=== PATIENT | male | born 1955 | race Hispanic/Latino ===

== ENCOUNTER 2022-03-04 11:38 | Emergency (ER) | payer OTHER ==
[~2022-03-04] VITALS: Ht 157.5 cm; Wt 81.6 kg
[2022-03-04] MEDS ORDERED: ACETAMINOPHEN 500 MG TABLET PO ONE (13:00)
[2022-03-04] MEDS ORDERED: CYCL10TA16 PO (13:18)
[2022-03-04 13:46] VITALS: BP 146/70
== END 2022-03-04 13:48 | disposition home or self-care (01) ==
LOC: EDH 11:38
DX: S46.912A Strain of unspecified muscle, fascia and tendon at shoulder and upper arm level, left arm, initial encounter (principal); E11.9 Type 2 diabetes mellitus without complications; E78.00 Pure hypercholesterolemia, unspecified; I10 Essential (primary) hypertension; Z79.899 Other long term (current) drug therapy; W01.0XXA Fall on same level from slipping, tripping and stumbling without subsequent striking against object, initial encounter; Y93.89 Activity, other specified; Y92.89 Other specified places as the place of occurrence of the external cause; Y99.8 Other external cause status
CPT/HCPCS: 71101; 73030; 73060

== ENCOUNTER 2024-09-16 09:31 | Inpatient (IN) | payer OTHER ==
[~2024-09-16] VITALS: Ht 157.5 cm; Wt 81.6 kg
[~2024-09-16 09:31] MED LIST: CYCL10TA16 PO
[2024-09-16 10:00] LABS: IMMATURE GRANULOCYTE ABSOLUTE 0.07 K/uL (0-1); NUCLEATED RED BLOOD CELLS 0.0 % (0.0-0.19); PLATELET COUNT (AUTO) 259 K/uL (130-400); RED BLOOD CELL COUNT(AUTO) 5.61 MIL/uL (4.50-6.20); RED CELL DISTRIBUTION WIDTH 13.4 % (11.0-15.5); WHITE BLOOD COUNT (AUTO) 12.6 K/uL (4.8-10.8)
--- NOTE | 2024-09-16 10:10 | ERN ---
General Chief Complaint: Blood in Urine: Stated Complaint: BLOOD IN URINE Time Seen by MD: 09:34 Source: patient History of Present Illness Initial Comments Patient is a 69-year-old male coming in complaining of blood in the urine. Patient states that this has been ongoing for a couple of days. He also states that he feels did not need to go and sometimes did not completely void. Allergies: Coded Allergies: No Known Allergies (Unverified Allergy, Unknown, 03/04/22) Home Meds Active Scripts Cyclobenzaprine HCl (Flexeril) 10 Mg Tab, 10 MG PO TID PRN for PAIN LEVEL 6 TO 10 for 3 Days, #9 TAB Prov:ALEX MORALES [facility] 03/04/22 Past Medical History Past Medical History: Diabetes-Type II, Hypertension Past Surgical History: Other Surgical History Other: LEFT KNEE SX ROS Dictation CONSTITUTIONAL: No chills, no fever, no weakness, no diaphoresis, no malaise. HEAD/FACE: No signs of trauma. EENT: No eye pain, no blurred vision, no tearing, no double vision, no ear pain, no ear discharge, no nose pain, no nasal congestion, no throat pain, no throat swelling, no mouth pain. RESPIRATORY: No cough, no orthopnea, no SOB, no stridor, no wheezing. CARDIOVASCULAR: No chest pain, no edema, no palpitations, no syncope. GASTROINTESTINAL/ABDOMINAL: No abdominal pain, no constipation, no diarrhea, no nausea, no vomiting. GENITOURINARY: No abnormal discharge, dysuria, frequent urination, no hematuria. No complaints of pain in the genitals. MUSCULOSKELETAL: No back pain, no gout, no joint pain, no joint swelling, no muscle pain, no muscle stiffness, no neck pain. INTEGUMENTARY: No change in color, no change in hair/nails, no dryness, no lesion, no lumps, no rash. NEUROLOGICAL/PSYCH: No anxiety, not depressed, no emotional problem, no headache, no numbness, no pre-existing deficit, no history of seizures, no tremors, no weakness. HEMATOLOGIC/LYMPHATIC: Not anemic, no history of blood clots, no apparent bleeding, no bruising, glands not swollen. All Systems Negative, Except as Noted. Physical Exam Physical Exam Dictation VITAL SIGNS: Reviewed. GENERAL APPEARANCE: Alert, oriented x3, no acute distress, obese. HEAD AND FACE: Non-traumatic. EYES: PERRL, pink conjunctivas, eyelid no trauma, anterior chamber clear. EARS: Pinnas intact and no signs of trauma or erythema. Ear canals clear and no discharge. TMs no erythema. NOSE: No discharge, no bleeding. OROPHARYNX: Mouth normal, teeth no caries, tongue pink. Pharynx clear, no erythema. Tonsils no exudates, no abscesses noted. Mucous membrane moist. NECK: Supple, non-tender, no thyromegaly, no masses, no JVD, no bruits. BREAST: Deferred. CHEST: No tenderness, no crepitus, no paradoxical movement, no retractions. LUNGS: Clear, well-ventilated, symmetric, no rales, no wheezing, no rhonchi, no stridor, good breath sounds bilaterally. HEART: Regular rate, regular rhythm, no murmur, no gallops. VASCULAR: No peripheral edema. ABDOMEN: Soft, positive bowel sounds, nondistended, no guarding, nontender, no rebound, no masses no hepatomegaly, no splenomegaly, no Bautista's sign, no hernias. RECTAL: Deferred. GENITAL: Deferred. NEUROLOGICAL: Normal speech, gross motor function intact, gross sensory function intact. MUSCULOSKELETAL: Neck nontender, full range of motion, back nontender, full range of motion. EXTREMITIES: Nontender, full range of motion. SKIN: Color pink, dry, no turgor, no rash, no lacerations, no abrasions, no contusions. LYMPHATICS: Deferred. Results Laboratory and Microbiology Lab and Micro Result Laboratory Tests Test 09/16/24 09:54 09/16/24 09:55 White Blood Count 12.6 K/uL (4.8-10.8) H Red Blood Count 5.61 MIL/uL (4.50-6.20) Hemoglobin 18.7 g/dL (14.0-18.0) H Hematocrit 55.4 % (42-54) H Mean Corpuscular Volume 98.8 fL (79-99) Mean Corpuscular Hemoglobin 33.3 pg (27.0-33.0) H Mean Corpuscular Hemoglobin Concent 33.8 g/dL (32.0-36.0) Red Cell Distribution Width 13.4 % (11.0-15.5) Platelet Count 259 K/uL (130-400) Mean Platelet Volume 10.9 fL (7.5-10.5) H Immature Granulocyte % (Auto) 0.6 % (0-1) Neutrophils (%) (Auto) 89.2 % (40.0-77.0) H Lymphocytes (%) (Auto) 8.1 % (21.0-51.0) L Monocytes (%) (Auto) 1.8 % (3.0-13.0) L Eosinophils (%) (Auto) 0.1 % (0.0-8.0) Basophils (%) (Auto) 0.2 % (0.0-5.0) Neutrophils # (Auto) 11.2 K/uL (1.8-7.7) H Lymphocytes # (Auto) 1.0 K/uL (1.0-4.8) Monocytes # (Auto) 0.2 K/uL (0.1-1.0) Eosinophils # (Auto) 0.01 K/uL (0.00-0.70) Basophils # (Auto) 0.03 K/uL (0.00-0.20) Absolute Immature Granulocyte (auto 0.07 K/uL (0-1) Nucleated Red Blood Cells 0.0 % (0.0-0.19) White Cell Morphology Comment See comments Sodium Level 133 mmol/L (136-145) L Potassium Level 4.9 mmol/L (3.5-5.1) Chloride Level 97 mmol/L (101-111) L Carbon Dioxide Level 29 mmol/L (21-32) Blood Urea Nitrogen 15 mg/dL (7-18) Creatinine 1.1 mg/dL (0.5-1.3) Glomerular Filtration Rate Calc 72 mL/min (>90) Random Glucose 415 mg/dL (70-105) *H Total Calcium 9.3 mg/dL (8.5-10.1) Urine Color RED (YELLOW) Urine Appearance CLOUDY (CLEAR) H Urine pH 5.5 (5.0-8.0) Urine Specific [place] 1.029 (1.001-1.031) Urine Protein 100 mg/dL (NEGATIVE) H Urine Glucose (UA) >=1000 mg/dL (NEGATIVE) H Urine Ketones NEGATIVE mg/dL (NEGATIVE) Urine Occult Blood LARGE (NEGATIVE) H Urine Nitrate NEGATIVE (NEGATIVE) Urine Bilirubin NEGATIVE mg/dL (NEGATIVE) Urine Urobilinogen 0.2 mg/dL (0.2-1.0) Urine Leukocyte Esterase 25 Irwin/uL (NEGATIVE) H Urine RBC TNTC /HPF (0-1) H Urine WBC 11-25 /HPF (0-1) H Urine Bacteria FEW /HPF (None Seen) Labs Reviewed?: Yes EKG/XRAY/US/CT/MRI CT Scan Comment [facility] [address] [place] [address] IMAGING REPORT Signed PATIENT: AMI NINA MR#: [id number] : 1955 SEX: M AGE: 69 LOCATION: [facility] ORDER 9 STATUS: REG REPORT#: [id number] SERVICE 8 REASON: hematuria ORDERING PHYSICIAN: YUDITH CALLEJAS MD PROCEDURE: ABD PEL WO - CT ABDOMEN/PELVIS W/O CONTRAST EXAM: CT abdomen and pelvis without contrast HISTORY: Hematuria TECHNIQUE: Multiple axial CT slices through the abdomen and pelvis without contrast. Coronal and sagittal reconstructions were performed. CT scans are performed using one of these three dose reduction techniques: automated exposure control, adjustment of the mA and/or kV according to patient size, or use of iterative reconstruction techniques. COMPARISON: None FINDINGS: Atelectasis seen in the lung bases. Coronary artery calcifications. No hepatic lesions. Gallbladder is decompressed. Spleen is normal. No pancreatic lesions. Adrenal glands are normal. No renal lesions. No hydronephrosis. Bladder is decompressed with mildly thickened wall. Bladder wall is slightly indistinct. No bowel dilatation. Diverticulosis. Appendix is normal. Vascular calcifications. No abdominal/pelvic lymphadenopathy. Degenerative changes. Air seen along the left retroperitoneum and in the spinal canal. Mild anterolisthesis of L4 and L5 vertebrae. IMPRESSION: Thickened indistinct appearance of the bladder wall may be secondary to infection or under distention. No urinary calculi or hydronephrosis. Air seen in the spinal canal and left retroperitoneum may be iatrogenic. Please clinic correlate with history and neurologic symptoms /[place] DICTATED BY: MELVA ANDERSON MD DATE: 09/16/24 1308 ELECTRONICALLY SIGNED BY: MELVA ANDERSON MD DATE: 09/16/24 1308 [facility] MDM: Differential diagnosis:, diabetes mellitus hyperglycemia uncontrolled, UTI, leukocytosis, dehydration Rationale: Tests considered and ordered secondary to shared decision making include: labs, ECG and radiology Previous outside records reviewed: Old ER visits. Risk of complication and/or morbidity or mortality of patient management: None Medications-Per medication reconciliation Need for hospitalization: Patient does meet criteria for hospitalization. Need for emergency major/minor surgery: No There are no social concerns with this patient. Prescription drug management Prescriptions will include symptomatic care Patient's prior external medical records from other ER visits were reviewed by me as indicated. Prior testing and results from previous visits were reviewed. Prior tests were taken into account with medical decision making and resource utilization, independent historian/historians were used to obtain complete medical history. I independently interpreted the test that were performed, results were reviewed by me and considered findings on radiology if ordered. Medical management and examination interpretation discussions were had by me with other qualified healthcare professionals as indicated for the patient's care. Patient will be admitted under the care of hospitalist group for ongoing management. ED Course Orders Procedure Category Date Status Time Cbc With Differential LAB 09/16/24 Complete 09:39 Basic Metabolic Panel LAB 09/16/24 Complete 09:39 Urinalysis LAB 09/16/24 Complete W/Microscopic 09:39 Ct Abdomen/Pelvis W/O CT 09/16/24 Resulted Contrast 09:39 Culture Urine BORIS 09/16/24 In Process 10:51 Ceftriaxone 1g Vial PHA 09/16/24 Complete (Rocephine 1g Inj) 11:30 0.9%Nacl 1000ml (Ns PHA 09/16/24 Complete 1000ml) 13:00 Insulin Regular, PHA 09/16/24 Complete Human 3ml (Humulin R 13:00 Current Medications Medications (Trade) Dose Ordered Sig/Juliane Route PRN Reason Start Time Stop Time Status Last Admin Dose Admin Ceftriaxone Sodium (ROCEphine 1G INJ) 1 gm ONCE ONCE IVPB 09/16/24 11:30 09/16/24 11:31 DC 09/16/24 11:30 Insulin Human Regular (humuLIN R 100 UNIT/ML 3ML) 5 unit ONCE ONCE IV 09/16/24 13:00 09/16/24 13:01 DC 09/16/24 13:01 Sodium Chloride 1,000 ml @ 0 mls/hr ONCE ONCE IV 09/16/24 13:00 09/16/24 13:01 DC 09/16/24 12:59 Vital Signs Date Time Temp Pulse Resp B/P (MAP) Pulse Ox O2 Delivery O2 Flow Rate FiO2 09/16/24 12:15 98.1 102 18 132/81 95 Room Air* 0 09/16/24 09:57 98.1 100 18 137/72 99 Room Air* 0 09/16/24 09:36 98.1 108 18 150/91 99 Room Air* 0 09/16/24 09:33 98.1 108 18 150/91 99 DX & DISP Disposition: Inpatient Decision to Admit Time: 13:13 Departure Impression: Primary Impression: UTI (urinary tract infection) Additional Impressions: Diabetes mellitus due to underlying condition, uncontrolled, with hyperglycemia, Dehydration Condition: Stable Referrals: YUDITH MOORE (PCP) YUDITH CALLEJAS MD Sep 16, 2024 10:10
[2024-09-16 10:17] LABS: CREATININE 1.1 mg/dL (0.5-1.3); GLOMERULAR FILTR. RATE CALC 72.0 mL/min (>90); SODIUM SERUM 133.0 mmol/L (136-145); UREA NITROGEN, BLOOD 15.0 mg/dL (7-18)
[2024-09-16 10:44] LABS: GLUCOSE,RANDOM 415.0 mg/dL (70-105)
[2024-09-16 10:45] LABS: GLUCOSE, URINE (UA) >=1000 mg/dL (NEGATIVE); LEUKOCYTE ESTERASE ,URINE 25 Leu/uL (NEGATIVE); NITRATE,URINE NEGATIVE (NEGATIVE); OCCULT BLOOD,URINE LARGE (NEGATIVE)
[2024-09-16 10:49] LABS: APPEARANCE,URINE CLOUDY (CLEAR)
--- NOTE | 2024-09-16 12:09 | HMCIMG ---
EXAM: CT abdomen and pelvis without contrast HISTORY: Hematuria TECHNIQUE: Multiple axial CT slices through the abdomen and pelvis without contrast. Coronal and sagittal reconstructions were performed. CT scans are performed using one of these three dose reduction techniques: automated exposure control, adjustment of the mA and/or kV according to patient size, or use of iterative reconstruction techniques. COMPARISON: None FINDINGS: Atelectasis seen in the lung bases. Coronary artery calcifications. No hepatic lesions. Gallbladder is decompressed. Spleen is normal. No pancreatic lesions. Adrenal glands are normal. No renal lesions. No hydronephrosis. Bladder is decompressed with mildly thickened wall. Bladder wall is slightly indistinct. No bowel dilatation. Diverticulosis. Appendix is normal. Vascular calcifications. No abdominal/pelvic lymphadenopathy. Degenerative changes. Air seen along the left retroperitoneum and in the spinal canal. Mild anterolisthesis of L4 and L5 vertebrae. IMPRESSION: Thickened indistinct appearance of the bladder wall may be secondary to infection or under distention. No urinary calculi or hydronephrosis. Air seen in the spinal canal and left retroperitoneum may be iatrogenic. Please clinic correlate with history and neurologic symptoms /[place]
[2024-09-16] MEDS: 0.9%NACL 1000ML 1,000 ML IV ONE (12:59)
[2024-09-16] MEDS ORDERED: DULO30CA52 PO (13:38)
[2024-09-16] MEDS ORDERED: LOSA100T59 PO (13:38)
[2024-09-16] MEDS ORDERED: PIOG15TA66 PO (13:38)
[2024-09-16] MEDS ORDERED: ROSU40TA88 PO (13:38)
[2024-09-16] MEDS ORDERED: GLIM2TAB30 PO (13:38)
[2024-09-16] MEDS ORDERED: GABA-529 PO (13:38)
[2024-09-16] MEDS ORDERED: METF-446 PO (13:38)
[2024-09-16] MEDS ORDERED: PoTASSium chl 10% ELIXIR 20MEQ 20 MEQ/15 ML UDCUP PO PRN (14:00)
[2024-09-16] MEDS ORDERED: DEXTROSE 50%-WATER 50 ML DISP.SYRIN IV PRN (14:00)
[2024-09-16] MEDS ORDERED: GLUCAGON 1MG KIT 1 MG ML IM PRN (14:00)
[2024-09-16] MEDS: 0.9%NACL 1000ML 1,000 ML IV SCH (14:00)
[2024-09-16] MEDS ORDERED: LACTULOSE 20 GM/30 ML UDCUP PO PRN (14:00)
[2024-09-16] MEDS ORDERED: guaiFENesin-DM 200/20MG 10ML PO PRN (14:00)
[2024-09-16] MEDS ORDERED: MAGNESIUM 2GM PREMIX 50ML 50 ML IV PRN (14:00)
[2024-09-16] MEDS ORDERED: PoTASSium chloRIDE 20MEQ ER 20 MEQ ERTAB PO PRN (14:00)
[2024-09-16 14:03] LABS: % IRON SATURATION 38.1 % (30-44); IRON, SERUM 90.0 mcg/dL (65-175)
--- NOTE | 2024-09-16 14:18 | HP ---
[facility] HISTORY AND PHYSICAL Date of Service: Sep 16, 2024 Time of Service: 13:51 HISTORY OF PRESENT ILLNESS: Mr. Nina is a 69 year old Uzbek speaking gentleman with past medical history of hypertension, diabetes mellitus type 2, hyperlipidemia came to ED wi th complaints of burning with micturition since 3 days and noticed color change in his urine. He says he had low grade fevers at home, no chills or night sweats but did not take Tylenol. He denies abdominal pain or nausea or vomiting or flank pain. He denies any urinary incontinence. Patient sees Dr. Urena for his lower back pain and b/l lower extremity weakness and gets an injection every 2 months but he doesn't remember the name. While in the ED his vitals were BP 123/84, HI 105, RR 20, Temp 98.2, SpO2 99% on RA. Remarkable labs were WBC 12.6, neutrophils 89.2, Hgb 18.7, Na 133, Cl 97, Glucose 415, urinalysis - glucose >1000, protein >100, positive for occult blood, WBC and RBC present with few bacteria. He was given IV NS, ceftriaxone and insulin in ED. Patient is admitted for further evaluation and treatment under hospitalist care. REVIEW OF SYSTEMS CONSTITUTIONAL: low grade fever. No unintentional weight loss reported. NEUROLOGICAL: Denies headache, motor weakness, gait abnormalities, or tremors. CARDIOVASCULAR: Denies any exertional angina, dyspnea on exertion, orthopnea, paroxysmal nocturnal dyspnea, palpitations. PULMONARY: Denies any shortness of breath, cough, phlegm/sputum, hemoptysis, pleuritic chest pain. GASTROINTESTINAL: Denies nausea, vomiting, pyrosis, early satiety, abdominal pain, diarrhea, constipation, or changes in stool consistency or caliber. GENITOURINARY: Burning micturition, straining to void, hematuria but no incontinence. ENDOCRINOLOGIC: Denies polyuria, polydipsia, polyphagia or heat/cold intolerances. PSYCHIATRIC: Denies any suicidal or homicidal ideation. Denies hallucinations. PAST MEDICAL HISTORY: Hypertenision, Hyperlipidemia, Diabetes Mellitus PAST SURGICAL HISTORY: Left knee tibia screw 2009, Cervical disc procedure by Dr. Urena 2018 PAST SOCIAL HISTORY: Occasional drinker, no smoking FAMILY HISTORY: no pertinent history Coded Allergies: No Known Allergies (Unverified Allergy, Unknown, 03/04/22) PHYSICAL EXAM GENERAL APPEARANCE: The patient is awake, alert, and oriented, in no acute cardiopulmonary distress. NEUROLOGICAL: Motor is 5/5 in bilateral upper and lower extremities proximal to distal. No sensory deficits. CHEST: Normal chest expansion. No Telemetry. LUNGS: Absence of any rales, rhonchi or any wheezing. CARDIOVASCULAR: Regular. S1 and S2 normal. No appreciable rubs, murmurs or gallops. ABDOMEN: Soft, nontender, and nondistended. There is no rebound, voluntary guarding, or rigidity. : Deferred. No Valles. EXTREMITIES: Non-edematous and not cyanotic. No clubbing. Good capillary refill. SKIN: No skin breakdown. Vital Sign (Last 24 Hours) 09/16/24 13:25 Temp 98.1 Pulse 105 Resp 20 B/P (MAP) 123/84 Pulse Ox 99 O2 Delivery Room Air* O2 Flow Rate 0 FiO2 21 LABS: Laboratory: Test 09/16/24 09:55 09/16/24 09:54 Range/Units Urine Color RED YELLOW Urine Appearance CLOUDY H CLEAR Urine pH 5.5 5.0-8.0 Urine Specific [place] 1.029 1.001-1.031 Urine Protein 100 H NEGATIVE mg/dL Urine Glucose (UA) >=1000 H NEGATIVE mg/dL Urine Ketones NEGATIVE NEGATIVE mg/dL Urine Occult Blood LARGE H NEGATIVE Urine Nitrate NEGATIVE NEGATIVE Urine Bilirubin NEGATIVE NEGATIVE mg/dL Urine Urobilinogen 0.2 0.2-1.0 mg/dL Urine Leukocyte Esterase 25 H NEGATIVE [place]/uL Urine RBC TNTC H 0-1 /HPF Urine WBC 11-25 H 0-1 /HPF Urine Bacteria FEW None Seen /HPF White Blood Count 12.6 H 4.8-10.8 K/uL Red Blood Count 5.61 4.50-6.20 MIL/uL Hemoglobin 18.7 H 14.0-18.0 g/dL Hematocrit 55.4 H 42-54 % Mean Corpuscular Volume 98.8 79-99 fL Mean Corpuscular Hemoglobin 33.3 H 27.0-33.0 pg Mean Corpuscular Hemoglobin Concent 33.8 32.0-36.0 g/dL Red Cell Distribution Width 13.4 11.0-15.5 % Platelet Count 259 130-400 K/uL Mean Platelet Volume 10.9 H 7.5-10.5 fL Immature Granulocyte % (Auto) 0.6 0-1 % Neutrophils (%) (Auto) 89.2 H 40.0-77.0 % Lymphocytes (%) (Auto) 8.1 L 21.0-51.0 % Monocytes (%) (Auto) 1.8 L 3.0-13.0 % Eosinophils (%) (Auto) 0.1 0.0-8.0 % Basophils (%) (Auto) 0.2 0.0-5.0 % Neutrophils # (Auto) 11.2 H 1.8-7.7 K/uL Lymphocytes # (Auto) 1.0 1.0-4.8 K/uL Monocytes # (Auto) 0.2 0.1-1.0 K/uL Eosinophils # (Auto) 0.01 0.00-0.70 K/uL Basophils # (Auto) 0.03 0.00-0.20 K/uL Absolute Immature Granulocyte (auto 0.07 0-1 K/uL Nucleated Red Blood Cells 0.0 0.0-0.19 % White Cell Morphology Comment See comments Sodium Level 133 L 136-145 mmol/L Potassium Level 4.9 3.5-5.1 mmol/L Chloride Level 97 L 101-111 mmol/L Carbon Dioxide Level 29 21-32 mmol/L Blood Urea Nitrogen 15 7-18 mg/dL Creatinine 1.1 0.5-1.3 mg/dL Glomerular Filtration Rate Calc 72 >90 mL/min Random Glucose 415 *H 70-105 mg/dL Total Calcium 9.3 8.5-10.1 mg/dL Current Medications Medications (Trade) Dose Ordered Sig/Juliane Route PRN Reason Start Time Stop Time Status Last Admin Dose Admin Ceftriaxone Sodium 2 gm/ Sodium Chloride 100 ml @ 200 mls/hr Q24H IV 09/16/24 14:00 09/26/24 13:59 UNV Dextrose (D50w) 50 ml AD PRN IV HYPOGLYCEMIA PROTOCOL 09/16/24 14:00 10/16/24 13:59 UNV Enoxaparin Sodium (Lovenox) 40 mg DAILY SQ 09/17/24 09:00 10/17/24 08:59 UNV Famotidine (Pepcid 20mg Tab) 20 mg BID PO 09/16/24 21:00 10/16/24 20:59 UNV Glucagon (Glucagon 1mg Kit) 1 mg AD PRN IM HYPOGLYCEMIA PROTOCOL 09/16/24 14:00 10/16/24 13:59 UNV Guaifenesin/ Dextromethorphan (RobiTUSSin DM 200/20MG 10ML) 10 ml Q4H PRN PO COUGH 09/16/24 14:00 10/16/24 13:59 UNV Insulin Human Regular (humuLIN R 100 UNIT/ML 3ML) INSULIN SLIDING SCAL... ACHS SQ 09/16/24 16:30 10/16/24 16:29 UNV Lactulose (Constulose 20gm/ 30ml Udcup) 20 gm BID PRN PO CONSTIPATION 09/16/24 14:00 10/16/24 13:59 UNV Magnesium Sulfate 50 ml @ 0 mls/hr PROTOCOL PRN IV LOW MG 09/16/24 14:00 10/16/24 13:59 UNV Ondansetron HCl (zoFRAN 4MG INJ) 4 mg Q6H PRN IV NAUSEA/VOMITING 09/16/24 14:00 10/16/24 13:59 UNV Potassium Chloride 100 ml @ 100 mls/hr AD PRN IV POTASSIUM PROTOCOL 09/16/24 14:00 10/16/24 13:59 UNV Potassium Chloride (K-Dur/Klor-Con 20meq) 20 meq AD PRN PO POTASSIUM PROTOCOL 09/16/24 14:00 10/16/24 13:59 UNV Potassium Chloride (KCl 10% Elixir 20meq/15ml) 20 meq AD PRN PO POTASSIUM PROTOCOL 09/16/24 14:00 10/16/24 13:59 UNV Sodium Chloride 1,000 ml @ 100 mls/hr Q10H IV 09/16/24 14:00 10/16/24 13:59 UNV DIAGNOSTICS / RADIOLOGY: PATIENT: AMI NINA MR#: [id number] : 1955 SEX: M AGE: 69 LOCATION: [facility] ORDER 9 STATUS: REG ER REPORT#: [id number] SERVICE 0939 REASON: hematuria ORDERING PHYSICIAN: YUDITH CALLEJAS MD PROCEDURE: ABD PEL WO - CT ABDOMEN/PELVIS W/O CONTRAST EXAM: CT abdomen and pelvis without contrast HISTORY: Hematuria TECHNIQUE: Multiple axial CT slices through the abdomen and pelvis without contrast. Coronal and sagittal reconstructions were performed. CT scans are performed using one of these three dose reduction techniques: automated exposure control, adjustment of the mA and/or kV according to patient size, or use of iterative reconstruction techniques. COMPARISON: None FINDINGS: Atelectasis seen in the lung bases. Coronary artery calcifications. No hepatic lesions. Gallbladder is decompressed. Spleen is normal. No pancreatic lesions. Adrenal glands are normal. No renal lesions. No hydronephrosis. Bladder is decompressed with mildly thickened wall. Bladder wall is slightly indistinct. No bowel dilatation. Diverticulosis. Appendix is normal. Vascular calcifications. No abdominal/pelvic lymphadenopathy. Degenerative changes. Air seen along the left retroperitoneum and in the spinal canal. Mild anterolisthesis of L4 and L5 vertebrae. IMPRESSION: Thickened indistinct appearance of the bladder wall may be secondary to infection or under distention. No urinary calculi or hydronephrosis. Air seen in the spinal canal and left retroperitoneum may be iatrogenic. Please clinic correlate with history and neurologic symptoms /[place] DICTATED BY: MELVA ANDERSON MD DATE: 09/16/24 1308 ELECTRONICALLY SIGNED BY: MELVA ANDERSON MD DATE: 09/16/24 1308 ASSESSMENT: Sepsis secondary to UTI, POA UTI with hematuria, POA Uncontrolled DM type 2 with Hyperglycemia POA Leukocytosis POA Hyponatremia POA Pneumorrhachis on CT 09/16/24 POA Dehydration Hypertension Hyperlipidemia PLAN: Sepsis secondary to UTI, POA UTI with Hematuria, POA Continue IV ceftriaxone and adjust per cultures. Monitor vitals, lactate, WBCs, and urine output. Consider fluids/pressors if signs of hypoperfusion. Repeat lactate every 46 hours until normalizing. Monitor for worsening hematuria or clot retention. Consider urology if persistent or gross hematuria. Uncontrolled DM type 2 with Hyperglycemia Monitor blood glucose q6h (or more frequent if on insulin drip). Initiate ISS and adjust insulin Monitor for DKA signs. Leukocytosis Monitor for other sources of infection if not improving. Repeat cultures if persistent fever/leukocytosis. Supportive care as needed. Hyponatremia Check serum osmolality, urine sodium, and urine osmolality. Fluid restrict if euvolemic/hypervolemic. Pneumorrhachis (air in spinal canal) on CT 09/16/24 Monitor neurologic status closely. Consult neurosurgery for evaluation and management if needed MRI spine ordered Dehydration IV fluid resuscitation based on vitals, urine output, and labs. Monitor BUN/Cr ratio and daily weights. Adjust fluids based on volume status. Encourage oral intake GI prophylaxis - Famotidine DVT prophylaxis - Lovenox Home medications have been reconciled Further recommendations will be guided by patient's hospital course and response to treatment. ATTESTATION BY PHYSICIAN I have seen and examined the patient. I reviewed the documentation, medical decision making, and treatment plan as noted by the resident provider above. I agree with the findings and plan of care. Bryn Chau MD, NIHITHA MD Sep 16, 2024 14:18
[2024-09-16] MEDS: 0.9%NACL 1000ML 2,448 ML IV ONE (15:30)
[2024-09-16 16:00] VITALS: BP 153/90; PULSE 97; RESP 22; TEMP 97.7
[2024-09-16 19:15] VITALS: BP 127/76; PULSE 89; RESP 18; TEMP 97.6
[2024-09-16 20:00] VITALS: O2SAT 99
[2024-09-16 20:19] LABS: CREATININE,URINE RANDOM 108.45 mg/dL (30-135)
[2024-09-16] MEDS: FAMOTIDINE 20MG TAB PO SCH (20:34)
[2024-09-16 22:59] VITALS: BP 108/63; PULSE 97; RESP 16; TEMP 98
[2024-09-17] VITALS (8 sets, daily range): BP systolic 126–148; BP diastolic 70–87; PULSE 74–90; RESP 19–22; TEMP 97.6–98.3; O2SAT 96–98
[2024-09-17 04:51] LABS: IMMATURE GRANULOCYTE ABSOLUTE 0.09 K/uL (0-1); NUCLEATED RED BLOOD CELLS 0.0 % (0.0-0.19); PLATELET COUNT (AUTO) 222 K/uL (130-400); RED BLOOD CELL COUNT(AUTO) 4.68 MIL/uL (4.50-6.20); RED CELL DISTRIBUTION WIDTH 13.2 % (11.0-15.5); WHITE BLOOD COUNT (AUTO) 10.6 K/uL (4.8-10.8)
[2024-09-17 05:06] LABS: ASPARTATE AMINOTRANSFERASE 11.0 U/L (10-37); CREATININE 0.9 mg/dL (0.5-1.3); GLOMERULAR FILTR. RATE CALC 92.0 mL/min (>90); GLUCOSE,RANDOM 169.0 mg/dL (70-105); SODIUM SERUM 132.0 mmol/L (136-145); TOTAL PROTEIN, SERUM 5.7 g/dL (6.0-8.3); UREA NITROGEN, BLOOD 16.0 mg/dL (7-18)
[2024-09-17] MEDS: ENOXAPARIN SODIUM 40 MG/0.4 ML SYRINGE SQ SCH (09:46)
--- NOTE | 2024-09-17 17:05 | NUR ---
D/C PLAN CM spoke to patient regarding d/c planning. Patient lives with spouse. Denies having any home services or DME. Reports he is independent with ADLs. No needs verbalized. CM to f/u. Addendum: 09/17/24 at 1706 by PRINCESS RIOJAS CM Amended: Links added.
--- NOTE | 2024-09-17 17:34 | PN ---
[facility] PROGRESS NOTE Date of Service: Sep 17, 2024 Time of Service: 16:39 SUBJECTIVE: Mr. Ascencio is a 69 year old Serbian speaking gentleman with past medical history of hypertension, diabetes mellitus type 2, hyperlipidemia came to ED with complaints of burning with micturition since 3 days and noticed color change in his urine. He says he had low grade fevers at home, no chills or night sweats but did not take Tylenol. He denies abdominal pain or nausea or vomiting or flank pain. He denies any urinary incontinence. Patient sees Dr. Urena for his lower back pain and b/l lower extremity weakness and gets an injection every 2 months but he doesn't remember the name. While in the ED his vitals were BP 123/84, AR 105, RR 20, Temp 98.2, SpO2 99% on RA. Remarkable labs were WBC 12.6, neutrophils 89.2, Hgb 18.7, Na 133, Cl 97, Glucose 415, urinalysis - glucose >1000, protein >100, positive for occult blood, WBC and RBC present with few bacteria. He was given IV NS, ceftriaxone and insulin in ED. Patient is admitted for further evaluation and treatment under hospitalist care. 09/17/24: Patient has been evaluated in his room today. He is stable without any pain but still continues to have hematuria. There are also some clots in the urine as well. Had a MRI lumbar spine performed today waiting on the reports. Has a renal ultrasound performed, still waiting on the results. Patient's glucose levels have improved to 169 from 415, lactic acid improved to 1.9 from 4.1. Patient's hemoglobin A1c at 8.0. Patient's FENA is at 0.1% suggesting prerenal, urine sodium at 22. Consulting urologist tomorrow. Orders placed for lab work for tomorrow. REVIEW OF SYSTEMS CONSTITUTIONAL: low grade fever, now resolved. No unintentional weight loss reported. NEUROLOGICAL: Denies headache, motor weakness, gait abnormalities, or tremors. CARDIOVASCULAR: Denies any exertional angina, dyspnea on exertion, orthopnea, paroxysmal nocturnal dyspnea, palpitations. PULMONARY: Denies any shortness of breath, cough, phlegm/sputum, hemoptysis, pleuritic chest pain. GASTROINTESTINAL: Denies nausea, vomiting, pyrosis, early satiety, abdominal pain, diarrhea, constipation, or changes in stool consistency or caliber. GENITOURINARY: straining to void, hematuria but no incontinence. ENDOCRINOLOGIC: Denies polyuria, polydipsia, polyphagia or heat/cold intolerances. PSYCHIATRIC: Denies any suicidal or homicidal ideation. Denies hallucinations. PHYSICAL EXAM GENERAL APPEARANCE: The patient is awake, alert, and oriented, in no acute cardiopulmonary distress. NEUROLOGICAL: Motor is 5/5 in bilateral upper and lower extremities proximal to distal. No sensory deficits. CHEST: Normal chest expansion. No Telemetry. LUNGS: Absence of any rales, rhonchi or any wheezing. CARDIOVASCULAR: Regular. S1 and S2 normal. No appreciable rubs, murmurs or gallops. ABDOMEN: Soft, nontender, and nondistended. There is no rebound, voluntary guarding, or rigidity. : Deferred. No Valles. EXTREMITIES: Non-edematous and not cyanotic. No clubbing. Good capillary refill. SKIN: No skin breakdown. Vital Signs (last 8hr) Date Time Temp Pulse Resp B/P (MAP) Pulse Ox O2 Delivery O2 Flow Rate FiO2 09/17/24 12:00 98.2 86 20 148/87 99 Room Air 21 LABS: Laboratory: Test 09/17/24 15:26 09/17/24 04:29 09/16/24 23:25 09/16/24 16:20 Range/Units Whole Blood Glucose 301 H 70-110 MG/DL White Blood Count 10.6 4.8-10.8 K/uL Red Blood Count 4.68 4.50-6.20 MIL/uL Hemoglobin 15.3 14.0-18.0 g/dL Hematocrit 46.6 42-54 % Mean Corpuscular Volume 99.6 H 79-99 fL Mean Corpuscular Hemoglobin 32.7 27.0-33.0 pg Mean Corpuscular Hemoglobin Concent 32.8 32.0-36.0 g/dL Red Cell Distribution Width 13.2 11.0-15.5 % Platelet Count 222 130-400 K/uL Mean Platelet Volume 10.9 H 7.5-10.5 fL Immature Granulocyte % (Auto) 0.8 0-1 % Neutrophils (%) (Auto) 86.3 H 40.0-77.0 % Lymphocytes (%) (Auto) 8.0 L 21.0-51.0 % Monocytes (%) (Auto) 4.6 3.0-13.0 % Eosinophils (%) (Auto) 0.0 0.0-8.0 % Basophils (%) (Auto) 0.3 0.0-5.0 % Neutrophils # (Auto) 9.2 H 1.8-7.7 K/uL Lymphocytes # (Auto) 0.9 L 1.0-4.8 K/uL Monocytes # (Auto) 0.5 0.1-1.0 K/uL Eosinophils # (Auto) 0.00 0.00-0.70 K/uL Basophils # (Auto) 0.03 0.00-0.20 K/uL Absolute Immature Granulocyte (auto 0.09 0-1 K/uL Nucleated Red Blood Cells 0.0 0.0-0.19 % Sodium Level 132 L 136-145 mmol/L Potassium Level 4.5 3.5-5.1 mmol/L Chloride Level 101 101-111 mmol/L Carbon Dioxide Level 25 21-32 mmol/L Blood Urea Nitrogen 16 7-18 mg/dL Creatinine 0.9 0.5-1.3 mg/dL Glomerular Filtration Rate Calc 92 >90 mL/min Random Glucose 169 #H 70-105 mg/dL Total Calcium 7.8 L 8.5-10.1 mg/dL Total Bilirubin 0.4 0.2-1.0 mg/dL Aspartate Amino Transf (AST/SGOT) 11 10-37 U/L Alanine Aminotransferase (ALT/SGPT) 16 12-78 U/L Alkaline Phosphatase 70 50-136 U/L C-Reactive Protein, Quantitative 26.30 H 0.5-3.0 mg/L Total Protein 5.7 L 6.0-8.3 g/dL Albumin 2.4 L 3.5-5.0 g/dL Lactic Acid Level 1.9 0.8-2.5 mmol/L Whole Blood Ketones Quantitative 0.5 0.0-0.6 mmol/L Total Creatine Kinase 74 21-232 U/L Test 09/16/24 14:08 09/16/24 09:55 09/16/24 09:54 Range/Units Thyroid Stimulating Hormone (TSH) 0.94 0.36-3.74 uIU/mL Urine Color RED YELLOW Urine Appearance CLOUDY H CLEAR Urine pH 5.5 5.0-8.0 Urine Specific [place] 1.029 1.001-1.031 Urine Protein 100 H NEGATIVE mg/dL Urine Glucose (UA) >=1000 H NEGATIVE mg/dL Urine Ketones NEGATIVE NEGATIVE mg/dL Urine Occult Blood LARGE H NEGATIVE Urine Nitrate NEGATIVE NEGATIVE Urine Bilirubin NEGATIVE NEGATIVE mg/dL Urine Urobilinogen 0.2 0.2-1.0 mg/dL Urine Leukocyte Esterase 25 H NEGATIVE [place]/uL Urine RBC TNTC H 0-1 /HPF Urine WBC 11-25 H 0-1 /HPF Urine Bacteria FEW None Seen /HPF Urine Random Creatinine 108.45 30-135 mg/dL Urine Random Sodium 22 L 40-220 mmol/l Urine Random Potassium 53 25-125 mmol/L Urine Random Chloride 47 L 110-250 mmol/L White Cell Morphology Comment See comments Hemoglobin A1c 8.0 H 4.0-6.0 % Estimated Average Glucose (eAG) 183 H 70-126 mg/dL Iron Level 90 65-175 mcg/dL Total Iron Binding Capacity 236 L 250-450 mcg/dL Percent Iron Saturation 38.1 30-44 % Procalcitonin < 0.05 L 0.05-0.5 ng/mL Current Medications Medications (Trade) Dose Ordered Sig/Juliane Route PRN Reason Start Time Stop Time Status Last Admin Dose Admin Atorvastatin Calcium (LIPItor 40MG) 80 mg DAILY PO 09/17/24 09:00 10/17/24 08:59 09/17/24 09:45 80 MG Ceftriaxone Sodium 2 gm/ Sodium Chloride 100 ml @ 200 mls/hr Q24H IV 09/16/24 14:00 09/16/24 14:03 DC Ceftriaxone Sodium (Rocephin 2gm Inj) 2 gm Q24H IVPB 09/17/24 09:00 09/27/24 08:59 09/17/24 09:46 2 GM Dextrose (D50w) 50 ml AD PRN IV HYPOGLYCEMIA PROTOCOL 09/16/24 14:00 10/16/24 13:59 Duloxetine HCl (CymbALTA 30 mg CAP) 30 mg BID PO 09/16/24 21:00 10/16/24 20:59 09/17/24 09:45 30 MG Enoxaparin Sodium (Lovenox) 40 mg DAILY SQ 09/17/24 09:00 10/17/24 08:59 09/17/24 09:46 40 MG Famotidine (Pepcid 20mg Tab) 20 mg Q24H PO 09/16/24 21:00 10/16/24 20:59 09/16/24 20:34 20 MG Gabapentin (NEURontin 100 mg CAP) 300 mg TID PO 09/16/24 21:00 10/16/24 20:59 09/17/24 15:19 300 MG Glucagon (Glucagon 1mg Kit) 1 mg AD PRN IM HYPOGLYCEMIA PROTOCOL 09/16/24 14:00 10/16/24 13:59 Guaifenesin/ Dextromethorphan (RobiTUSSin DM 200/20MG 10ML) 10 ml Q4H PRN PO COUGH 09/16/24 14:00 10/16/24 13:59 Insulin Human Regular (humuLIN R 100 UNIT/ML 3ML) INSULIN SLIDING SCAL... ACHS SQ 09/16/24 16:30 10/16/24 16:29 09/17/24 12:49 14 UNIT Lactulose (Constulose 20gm/ 30ml Udcup) 20 gm BID PRN PO CONSTIPATION 09/16/24 14:00 10/16/24 13:59 Losartan Potassium (CozAAR 100MG TAB) 100 mg DAILY PO 09/17/24 09:00 10/17/24 08:59 09/17/24 09:46 100 MG Magnesium Sulfate 50 ml @ 0 mls/hr PROTOCOL PRN IV LOW MG 09/16/24 14:00 10/16/24 13:59 Ondansetron HCl (zoFRAN 4MG INJ) 4 mg Q6H PRN IV NAUSEA/VOMITING 09/16/24 14:00 10/16/24 13:59 Potassium Chloride 100 ml @ 100 mls/hr AD PRN IV POTASSIUM PROTOCOL 09/16/24 14:00 10/16/24 13:59 Potassium Chloride (K-Dur/Klor-Con 20meq) 20 meq AD PRN PO POTASSIUM PROTOCOL 09/16/24 14:00 10/16/24 13:59 Potassium Chloride (KCl 10% Elixir 20meq/15ml) 20 meq AD PRN PO POTASSIUM PROTOCOL 09/16/24 14:00 10/16/24 13:59 Sodium Chloride 1,000 ml @ 100 mls/hr Q10H IV 09/16/24 14:00 10/16/24 13:59 09/17/24 09:48 100 MLS/HR DIAGNOSTICS / RADIOLOGY: [ ] ASSESSMENT: Sepsis secondary to UTI, POA, now resolving UTI with hematuria, POA High hemoglobin levels could be due to polycythemia vera Uncontrolled DM type 2 with Hyperglycemia POA Leukocytosis POA Hyponatremia POA, likely due to SIADH Pneumorrhachis on CT 09/16/24 POA Dehydration Hypertension Hyperlipidemia PLAN: Sepsis secondary to UTI, POA, now resolving UTI with Hematuria, POA Continue IV ceftriaxone and adjust per cultures. Patient's vitals, lactate, WBC are all improving Consider fluids/pressors if signs of hypoperfusion. Monitor for worsening hematuria or clot retention. Getting urology consulted tomorrow Uncontrolled DM type 2 with Hyperglycemia Monitor blood glucose q6h (or more frequent if on insulin drip), glucose levels normalizing, now at 169 Continue ISS and adjust insulin Monitor for DKA signs. High hemoglobin levels possibly due to polycythemia vera Hemoglobin level at admission was 18.7, today at 15.3 CBC ordered, check hemoglobin levels tomorrow Hyponatremia, likely due to SIADH Urine sodium low at 22 Check serum osmolality, urine sodium, and urine osmolality, again tomorrow Fluid restrict if euvolemic/hypervolemic. Sodium remains at 133 after NS was given. Pneumorrhachis (air in spinal canal) on CT 09/16/24 Monitor neurologic status closely. Consult neurosurgery for evaluation and management if needed MRI spine ordered Dehydration IV fluid resuscitation based on vitals, urine output, and labs. Monitor BUN/Cr ratio and daily weights. Adjust fluids based on volume status. Encourage oral intake GI prophylaxis - Famotidine DVT prophylaxis - Lovenox Home medications have been reconciled Further recommendations will be guided by patient's hospital course and response to treatment. ATTESTATION BY PHYSICIAN I have seen and examined the patient. I reviewed the documentation, medical decision making, and treatment plan as noted by the resident provider above. I agree with the findings and plan of care. Bryn Chau MD, ABHINAV MD Sep 17, 2024 17:34
--- NOTE | 2024-09-17 21:58 | HMCIMG ---
EXAM: MR Lumbar Spine Without Intravenous Contrast. CLINICAL HISTORY: Pneumorrhachis, weakness in the bilateral lower extremities. TECHNIQUE: Magnetic resonance images of the lumbar spine in multiple planes. CONTRAST: None. COMPARISON: CT abdomen and pelvis dated 09/16/24. FINDINGS: For this examination, spinal levels were labeled assuming five [id number], lumbar-type vertebrae, with the inferior labeled L5. No acute fracture. Moderate dextroscoliosis. Mild degenerative anterolisthesis of L4 over L5. Multilevel spondylosis is evident by marginal osteophytes and facet joint arthropathy. Multilevel disc desiccation and degenerative disc height reduction were noted, more pronounced at the L2-L3 level. Normal vertebral body heights. Modic type I changes in the contiguous endplates at the L3-L4 level. Conus medullaris terminates at the T12-L1 level. No abnormal epidural masses. Mild subcutaneous edema in the lower back. Individual spinal levels are described as follows: T12-L1: No disc bulge or herniation. No neural foraminal, lateral recess, or spinal canal stenosis. L1-L2: 4 mm disc osteophyte complex bulge, ligamentum flavum thickening, and facet joint arthropathy causing mild canal narrowing and mild bilateral foraminal narrowing. No lateral recess stenosis. L2-L3: 6 mm left predominant disc osteophyte complex bulge and facet joint arthropathy causing mild canal narrowing with clumping of the cauda equina and moderate left foraminal narrowing. No lateral recess stenosis. L3-L4: 5 mm disc osteophyte complex bulge and facet joint arthropathy causing mild indentation on the anterior thecal sac and moderate left foraminal narrowing. No lateral recess stenosis. L4-L5: 7 mm anterolisthesis of L4 over L5 with uncovering of the posterior disc, ligamentum flavum thickening, and facet joint arthropathy causing moderate canal narrowing with clumping of the cauda equina, moderate bilateral lateral recess narrowing with compression of the traversing bilateral L5 nerve roots, severe right foraminal narrowing with compression of the exiting right L5 nerve root, and mild left foraminal narrowing. L5-S1: 3 mm right predominant disc osteophyte complex bulge with right paracentral disc extrusion, 7 mm cranial disc migration, and facet joint arthropathy causing mild indentation on the anterior thecal sac and moderate right foraminal narrowing with compression of the exiting right L5 nerve root. No lateral recess stenosis. IMPRESSION: Pneumorrhachis is not well appreciated on the MRI. Moderate dextroscoliosis. Mild degenerative anterolisthesis of L4 over L5. Moderate to severe multilevel spondylosis and degenerative disc changes. Modic type I changes in the contiguous endplates at the L3-L4 level. Mild canal narrowing and mild bilateral foraminal narrowing at the L1-L2 level. Mild canal narrowing with clumping of the cauda equina and moderate left foraminal narrowing at the L2-L3 level. Mild indentation on the anterior thecal sac and moderate left foraminal narrowing at the L3-L4 level. Moderate canal narrowing with clumping of the cauda equina, moderate bilateral lateral recess narrowing with compression of the traversing bilateral L5 nerve roots, severe right foraminal narrowing with compression of the exiting right L5 nerve root, and mild left foraminal narrowing at the L4-L5 level. Mild indentation on the anterior thecal sac and moderate right foraminal narrowing with compression of the exiting right L5 nerve root at the L5-S1 level. No significant interval changes. /[place]
[2024-09-18] VITALS (7 sets, daily range): BP systolic 107–185; BP diastolic 64–92; PULSE 82–97; RESP 17–20; TEMP 97.5–98.9; O2SAT 95–99
[2024-09-18 05:16] LABS: IMMATURE GRANULOCYTE ABSOLUTE 0.04 K/uL (0-1); NUCLEATED RED BLOOD CELLS 0.0 % (0.0-0.19); PLATELET COUNT (AUTO) 208 K/uL (130-400); RED BLOOD CELL COUNT(AUTO) 4.85 MIL/uL (4.50-6.20); RED CELL DISTRIBUTION WIDTH 13.2 % (11.0-15.5); WHITE BLOOD COUNT (AUTO) 6.9 K/uL (4.8-10.8)
[2024-09-18 05:40] LABS: ASPARTATE AMINOTRANSFERASE 13.0 U/L (10-37); CREATININE 0.7 mg/dL (0.5-1.3); GLOMERULAR FILTR. RATE CALC 99.0 mL/min (>90); GLUCOSE,RANDOM 119.0 mg/dL (70-105); SODIUM SERUM 140.0 mmol/L (136-145); TOTAL PROTEIN, SERUM 5.7 g/dL (6.0-8.3); UREA NITROGEN, BLOOD 13.0 mg/dL (7-18)
--- NOTE | 2024-09-18 06:47 | HMCIMG ---
EXAMINATION: ULTRASOUND OF THE RETROPERITONEUM. CLINICAL HISTORY: Hematuria. COMPARISON: CT abdomen and pelvis without contrast dated 09/16/2024. TECHNIQUE: Real-time grayscale ultrasound images of the kidneys. FINDINGS: The kidneys are normal in caliber, the right kidney measures 11.5 x 6.2 x 4.3 cm and the left kidney measures 11.2 x 5.9 x 4.3 cm in its craniocaudal, AP, and transverse dimensions respectively. There is normal renal cortical thickness, and cortical echogenicity. There is no renal calculus or hydronephrosis. There is a simple parapelvic cortical cyst that measures 1.6 x 1.6 x 1.7 cm in the left renal upper pole. There is bilateral renal cortical lobulations. IMPRESSION: Left renal simple parapelvic cyst. No urinary calculi. No hydronephrosis. /[place]
--- NOTE | 2024-09-18 10:21 | PN ---
[facility] PROGRESS NOTE Date of Service: Sep 18, 2024 Time of Service: 10:14 SUBJECTIVE: Mr. Nina is a 69 year old Croatian speaking gentleman with past medical history of hypertension, diabetes mellitus type 2, hyperlipidemia came to ED with complaints of burning with micturition since 3 days and noticed color change in his urine. He says he had low grade fevers at home, no chills or night sweats but did not take Tylenol. He denies abdominal pain or nausea or vomiting or flank pain. He denies any urinary incontinence. Patient sees Dr. Urena for his lower back pain and b/l lower extremity weakness and gets an injection every 2 months but he doesn't remember the name. While in the ED his vitals were BP 123/84, NC 105, RR 20, Temp 98.2, SpO2 99% on RA. Remarkable labs were WBC 12.6, neutrophils 89.2, Hgb 18.7, Na 133, Cl 97, Glucose 415, urinalysis - glucose >1000, protein >100, positive for occult blood, WBC and RBC present with few bacteria. He was given IV NS, ceftriaxone and insulin in ED. Patient is admitted for further evaluation and treatment under hospitalist care. 09/17/24: Patient has been evaluated in his room today. He is stable without any pain but still continues to have hematuria. There are also some clots in the urine as well. Had a MRI lumbar spine performed today waiting on the reports. Has a renal ultrasound performed, still waiting on the results. Patient's glucose levels have improved to 169 from 415, lactic acid improved to 1.9 from 4.1. Patient's hemoglobin A1c at 8.0. Patient's FENA is at 0.1% suggesting prerenal, urine sodium at 22. Consulting urologist tomorrow. Orders placed for lab work for tomorrow. 09/18/24: Patient has been evaluated in his room today. He is stable without any pain and continues to have hematuria but no clots. Patient lactic acid levels and CRP have improved. His CT abdomen and pelvis showed thickened bladder wall without evidence of calculi or hydronephrosis. Air was seen in the spinal canal and left retroperitoneum. His renal US showed left simple parapelvic cyst. His Lumbar MRI is remarkable for moderate to severe multi-level spondylosis and degenerative disc changes, moderate canal narrowing with clumping of the cauda equina, and severe right foraminal narrowing with compression of right L5 nerve root. Patient's blood glucose levels are well maintained, 119. Patient is still pending urologist consult. REVIEW OF SYSTEMS CONSTITUTIONAL: low grade fever, now resolved. No unintentional weight loss reported. NEUROLOGICAL: Denies headache, motor weakness, gait abnormalities, or tremors. CARDIOVASCULAR: Denies any exertional angina, dyspnea on exertion, orthopnea, paroxysmal nocturnal dyspnea, palpitations. PULMONARY: Denies any shortness of breath, cough, phlegm/sputum, hemoptysis, pleuritic chest pain. GASTROINTESTINAL: Denies nausea, vomiting, pyrosis, early satiety, abdominal pain, diarrhea, constipation, or changes in stool consistency or caliber. GENITOURINARY: straining to void, hematuria but no incontinence. ENDOCRINOLOGIC: Denies polyuria, polydipsia, polyphagia or heat/cold intolerances. PSYCHIATRIC: Denies any suicidal or homicidal ideation. Denies hallucinations. PHYSICAL EXAM GENERAL APPEARANCE: The patient is awake, alert, and oriented, in no acute cardiopulmonary distress. NEUROLOGICAL: Motor is 5/5 in bilateral upper and lower extremities proximal to distal. No sensory deficits. CHEST: Normal chest expansion. No Telemetry. LUNGS: Absence of any rales, rhonchi or any wheezing. CARDIOVASCULAR: Regular. S1 and S2 normal. No appreciable rubs, murmurs or gallops. ABDOMEN: Soft, nontender, and nondistended. There is no rebound, voluntary guarding, or rigidity. : Deferred. No Valles. EXTREMITIES: Non-edematous and not cyanotic. No clubbing. Good capillary refill. SKIN: No skin breakdown. Vital Signs (last 8hr) Date Time Temp Pulse Resp B/P (MAP) Pulse Ox O2 Delivery O2 Flow Rate FiO2 09/18/24 07:49 98.4 97 18 125/92 99 Room Air 09/18/24 03:17 97.5 83 20 107/64 97 Room Air LABS: Laboratory: Test 09/18/24 04:53 09/18/24 04:51 09/17/24 04:29 09/16/24 23:25 Range/Units White Blood Count 6.9 4.8-10.8 K/uL Red Blood Count 4.85 4.50-6.20 MIL/uL Hemoglobin 16.1 14.0-18.0 g/dL Hematocrit 47.3 42-54 % Mean Corpuscular Volume 97.5 79-99 fL Mean Corpuscular Hemoglobin 33.2 H 27.0-33.0 pg Mean Corpuscular Hemoglobin Concent 34.0 32.0-36.0 g/dL Red Cell Distribution Width 13.2 11.0-15.5 % Platelet Count 208 130-400 K/uL Mean Platelet Volume 10.6 H 7.5-10.5 fL Immature Granulocyte % (Auto) 0.6 0-1 % Neutrophils (%) (Auto) 79.9 H 40.0-77.0 % Lymphocytes (%) (Auto) 13.6 L 21.0-51.0 % Monocytes (%) (Auto) 5.5 3.0-13.0 % Eosinophils (%) (Auto) 0.0 0.0-8.0 % Basophils (%) (Auto) 0.4 0.0-5.0 % Neutrophils # (Auto) 5.5 1.8-7.7 K/uL Lymphocytes # (Auto) 0.9 L 1.0-4.8 K/uL Monocytes # (Auto) 0.4 0.1-1.0 K/uL Eosinophils # (Auto) 0.00 0.00-0.70 K/uL Basophils # (Auto) 0.03 0.00-0.20 K/uL Absolute Immature Granulocyte (auto 0.04 0-1 K/uL Nucleated Red Blood Cells 0.0 0.0-0.19 % Sodium Level 140 136-145 mmol/L Potassium Level 4.2 3.5-5.1 mmol/L Chloride Level 107 101-111 mmol/L Carbon Dioxide Level 27 21-32 mmol/L Blood Urea Nitrogen 13 7-18 mg/dL Creatinine 0.7 0.5-1.3 mg/dL Glomerular Filtration Rate Calc 99 >90 mL/min Random Glucose 119 H 70-105 mg/dL Total Calcium 8.3 L 8.5-10.1 mg/dL Total Bilirubin 0.4 0.2-1.0 mg/dL Aspartate Amino Transf (AST/SGOT) 13 10-37 U/L Alanine Aminotransferase (ALT/SGPT) 19 12-78 U/L Alkaline Phosphatase 70 50-136 U/L Total Protein 5.7 L 6.0-8.3 g/dL Albumin 2.7 L 3.5-5.0 g/dL Whole Blood Glucose 134 H 70-110 MG/DL C-Reactive Protein, Quantitative 26.30 H 0.5-3.0 mg/L Lactic Acid Level 1.9 0.8-2.5 mmol/L Test 09/16/24 16:20 09/16/24 14:08 Range/Units Whole Blood Ketones Quantitative 0.5 0.0-0.6 mmol/L Total Creatine Kinase 74 21-232 U/L Thyroid Stimulating Hormone (TSH) 0.94 0.36-3.74 uIU/mL Current Medications Medications (Trade) Dose Ordered Sig/Juliane Route PRN Reason Start Time Stop Time Status Last Admin Dose Admin Atorvastatin Calcium (LIPItor 40MG) 80 mg DAILY PO 09/17/24 09:00 10/17/24 08:59 09/18/24 08:13 80 MG Ceftriaxone Sodium 2 gm/ Sodium Chloride 100 ml @ 200 mls/hr Q24H IV 09/16/24 14:00 09/16/24 14:03 DC Ceftriaxone Sodium (Rocephin 2gm Inj) 2 gm Q24H IVPB 09/17/24 09:00 09/27/24 08:59 09/18/24 08:12 2 GM Dextrose (D50w) 50 ml AD PRN IV HYPOGLYCEMIA PROTOCOL 09/16/24 14:00 10/16/24 13:59 Duloxetine HCl (CymbALTA 30 mg CAP) 30 mg BID PO 09/16/24 21:00 10/16/24 20:59 09/18/24 08:13 30 MG Enoxaparin Sodium (Lovenox) 40 mg DAILY SQ 09/17/24 09:00 10/17/24 08:59 09/18/24 08:12 40 MG Famotidine (Pepcid 20mg Tab) 20 mg Q24H PO 09/16/24 21:00 10/16/24 20:59 09/17/24 21:36 20 MG Gabapentin (NEURontin 100 mg CAP) 300 mg TID PO 09/16/24 21:00 10/16/24 20:59 09/18/24 08:13 300 MG Glucagon (Glucagon 1mg Kit) 1 mg AD PRN IM HYPOGLYCEMIA PROTOCOL 09/16/24 14:00 10/16/24 13:59 Guaifenesin/ Dextromethorphan (RobiTUSSin DM 200/20MG 10ML) 10 ml Q4H PRN PO COUGH 09/16/24 14:00 10/16/24 13:59 Insulin Human Regular (humuLIN R 100 UNIT/ML 3ML) INSULIN SLIDING SCAL... ACHS SQ 09/16/24 16:30 10/16/24 16:29 09/17/24 17:47 14 UNIT Lactulose (Constulose 20gm/ 30ml Udcup) 20 gm BID PRN PO CONSTIPATION 09/16/24 14:00 10/16/24 13:59 Losartan Potassium (CozAAR 100MG TAB) 100 mg DAILY PO 09/17/24 09:00 10/17/24 08:59 09/18/24 08:13 100 MG Magnesium Sulfate 50 ml @ 0 mls/hr PROTOCOL PRN IV LOW MG 09/16/24 14:00 10/16/24 13:59 Ondansetron HCl (zoFRAN 4MG INJ) 4 mg Q6H PRN IV NAUSEA/VOMITING 09/16/24 14:00 10/16/24 13:59 Potassium Chloride 100 ml @ 100 mls/hr AD PRN IV POTASSIUM PROTOCOL 09/16/24 14:00 10/16/24 13:59 Potassium Chloride (K-Dur/Klor-Con 20meq) 20 meq AD PRN PO POTASSIUM PROTOCOL 09/16/24 14:00 10/16/24 13:59 Potassium Chloride (KCl 10% Elixir 20meq/15ml) 20 meq AD PRN PO POTASSIUM PROTOCOL 09/16/24 14:00 10/16/24 13:59 Sodium Chloride 1,000 ml @ 100 mls/hr Q10H IV 09/16/24 14:00 10/16/24 13:59 09/18/24 05:43 100 MLS/HR DIAGNOSTICS / RADIOLOGY: [ ] PATIENT: AMI NINA MR#: [id number] : 1955 SEX: M AGE: 69 LOCATION: [facility] ORDER [id number] STATUS: ADM IN REPORT#: [id number] SERVICE 1346 REASON: PNEUMORRHACHIS, WEAKNESS IN B/L LE ORDERING PHYSICIAN: GALO MUNSON MD PROCEDURE: L SPN WO - MR SPINAL CANAL, LUMBAR WO CON EXAM: MR Lumbar Spine Without Intravenous Contrast. CLINICAL HISTORY: Pneumorrhachis, weakness in the bilateral lower extremities. TECHNIQUE: Magnetic resonance images of the lumbar spine in multiple planes. CONTRAST: None. COMPARISON: CT abdomen and pelvis dated 09/16/24. FINDINGS: For this examination, spinal levels were labeled assuming five [id number], lumbar-type vertebrae, with the inferior labeled L5. No acute fracture. Moderate dextroscoliosis. Mild degenerative anterolisthesis of L4 over L5. Multilevel spondylosis is evident by marginal osteophytes and facet joint arthropathy. Multilevel disc desiccation and degenerative disc height reduction were noted, more pronounced at the L2-L3 level. Normal vertebral body heights. Modic type I changes in the contiguous endplates at the L3-L4 level. Conus medullaris terminates at the T12-L1 level. No abnormal epidural masses. Mild subcutaneous edema in the lower back. Individual spinal levels are described as follows: T12-L1: No disc bulge or herniation. No neural foraminal, lateral recess, or spinal canal stenosis. L1-L2: 4 mm disc osteophyte complex bulge, ligamentum flavum thickening, and facet joint arthropathy causing mild canal narrowing and mild bilateral foraminal narrowing. No lateral recess stenosis. L2-L3: 6 mm left predominant disc osteophyte complex bulge and facet joint arthropathy causing mild canal narrowing with clumping of the cauda equina and moderate left foraminal narrowing. No lateral recess stenosis. L3-L4: 5 mm disc osteophyte complex bulge and facet joint arthropathy causing mild indentation on the anterior thecal sac and moderate left foraminal narrowing. No lateral recess stenosis. L4-L5: 7 mm anterolisthesis of L4 over L5 with uncovering of the posterior disc, ligamentum flavum thickening, and facet joint arthropathy causing moderate canal narrowing with clumping of the cauda equina, moderate bilateral lateral recess narrowing with compression of the traversing bilateral L5 nerve roots, severe right foraminal narrowing with compression of the exiting right L5 nerve root, and mild left foraminal narrowing. L5-S1: 3 mm right predominant disc osteophyte complex bulge with right paracentral disc extrusion, 7 mm cranial disc migration, and facet joint arthropathy causing mild indentation on the anterior thecal sac and moderate right foraminal narrowing with compression of the exiting right L5 nerve root. No lateral recess stenosis. IMPRESSION: Pneumorrhachis is not well appreciated on the MRI. Moderate dextroscoliosis. Mild degenerative anterolisthesis of L4 over L5. Moderate to severe multilevel spondylosis and degenerative disc changes. Modic type I changes in the contiguous endplates at the L3-L4 level. Mild canal narrowing and mild bilateral foraminal narrowing at the L1-L2 level. Mild canal narrowing with clumping of the cauda equina and moderate left foraminal narrowing at the L2-L3 level. Mild indentation on the anterior thecal sac and moderate left foraminal narrowing at the L3-L4 level. Moderate canal narrowing with clumping of the cauda equina, moderate bilateral lateral recess narrowing with compression of the traversing bilateral L5 nerve roots, severe right foraminal narrowing with compression of the exiting right L5 nerve root, and mild left foraminal narrowing at the L4-L5 level. Mild indentation on the anterior thecal sac and moderate right foraminal narrowing with compression of the exiting right L5 nerve root at the L5-S1 level. No significant interval changes. /[place] DICTATED BY: SATISH FERGUSON Jr., MD DATE: 09/17/242256 ELECTRONICALLY SIGNED BY: SATISH FERGUSON Jr., MD DATE: 09/17/242256 PATIENT: AMI NINA MR#: [id number] : 1955 SEX: M AGE: 69 LOCATION: [facility] ORDER 110 STATUS: ADM IN REPORT#: [id number] SERVICE 110 REASON: hematuria ORDERING PHYSICIAN: JACQUELINE FERNANDEZ MD PROCEDURE: RENAL - US RENAL SONOGRAM EXAMINATION: ULTRASOUND OF THE RETROPERITONEUM. CLINICAL HISTORY: Hematuria. COMPARISON: CT abdomen and pelvis without contrast dated 09/16/2024. TECHNIQUE: Real-time grayscale ultrasound images of the kidneys. FINDINGS: The kidneys are normal in caliber, the right kidney measures 11.5 x 6.2 x 4.3 cm and the left kidney measures 11.2 x 5.9 x 4.3 cm in its craniocaudal, AP, and transverse dimensions respectively. There is normal renal cortical thickness, and cortical echogenicity. There is no renal calculus or hydronephrosis. There is a simple parapelvic cortical cyst that measures 1.6 x 1.6 x 1.7 cm in the left renal upper pole. There is bilateral renal cortical lobulations. IMPRESSION: Left renal simple parapelvic cyst. No urinary calculi. No hydronephrosis. /[place] DICTATED BY: HARISH BRUCE MD DATE: 09/18/24745 ELECTRONICALLY SIGNED BY: HARISH BRUCE MD DATE: 09/18/24745 ASSESSMENT: Sepsis secondary to UTI, POA, now resolving UTI with hematuria, POA High hemoglobin levels could be due to polycythemia vera Uncontrolled DM type 2 with Hyperglycemia POA Leukocytosis POA Hyponatremia POA, Pneumorrhachis on CT 09/16/24 POA Dehydration Hypertension Hyperlipidemia PLAN: Sepsis secondary to UTI, POA, now resolving UTI with Hematuria, POA Continue IV ceftriaxone. Urine culture showed less than 10,000 CFU. Patient's vitals, lactate, WBC are all improving Consider fluids/pressors if signs of hypoperfusion. Monitor for worsening hematuria or clot retention. Getting urology consulted tomorrow Uncontrolled DM type 2 with Hyperglycemia Monitor blood glucose q6h (or more frequent if on insulin drip), glucose levels normalizing, now at 238 Continue ISS and adjust insulin Monitor for DKA signs. High hemoglobin levels possibly due to polycythemia vera Hemoglobin level at admission was 18.7, today at 16.1 CBC ordered, check hemoglobin levels tomorrow Hyponatremia, Urine sodium low at 22 Pending serum osmolality, urine sodium, and urine osmolality Fluid restrict if euvolemic/hypervolemic. Serum Sodium is 140 today. Pneumorrhachis (air in spinal canal) on CT 09/16/24 Monitor neurologic status closely. Consult neurosurgery for evaluation and management if needed MRI spine showed moderate to severe multi-level spondylosis and degenerative disc changes, moderate canal narrowing with clumping of the cauda equina, and severe right foraminal narrowing with compression of right L5 nerve root. Dehydration IV fluid resuscitation based on vitals, urine output, and labs. Monitor BUN/Cr ratio and daily weights. Adjust fluids based on volume status. Encourage oral intake GI prophylaxis - Famotidine DVT prophylaxis - Lovenox Home medications have been reconciled Further recommendations will be guided by patient's hospital course and response to treatment. ATTESTATION BY PHYSICIAN I have seen and examined the patient. I reviewed the documentation, medical decision making, and treatment plan as noted by the resident provider above. I agree with the findings and plan of care. Bryn Chau MD, HARSHAVARDHA MD Sep 18, 2024 10:21
--- NOTE | 2024-09-18 13:00 | NUR ---
[facility] Consult: Patient assessed by wound healing team. Patient with no wounds or skin breakdown noted, healed burn to left forearm. Assessment and recommendations provided to primary nurse. Education provided. Addendum: 09/19/24 at 1609 by INES SORIANO RN RN/PRADEEP Amended: Links added.
[2024-09-18 20:21] LABS: APPEARANCE,URINE CLEAR (CLEAR); CREATININE,URINE RANDOM 9.16 mg/dL (30-135); GLUCOSE, URINE (UA) 70 mg/dL (NEGATIVE); LEUKOCYTE ESTERASE ,URINE NEGATIVE Leu/uL (NEGATIVE); NITRATE,URINE NEGATIVE (NEGATIVE); OCCULT BLOOD,URINE LARGE (NEGATIVE)
[2024-09-18 20:22] LABS: ADD UA MICROSCOPIC YES
[2024-09-18 20:28] LABS: UNCLASSIFIED CRYSTAL 7 /HPF (None Seen)
[2024-09-19] VITALS: BP 150/78; PULSE 63; RESP 20; TEMP 98.4
--- NOTE | 2024-09-19 00:42 | CONS ---
REQUESTING PHYSICIAN: Bryn Chau MD REASON FOR CONSULTATION: Gross hematuria. HISTORY OF PRESENT ILLNESS: A 69-year-old male admitted to the hospital because of a 3-day history of progressive hematuria, as well as passage of sand-like material with severe dysuria and frequency of urination. No back pain, no fever or chills. The patient since reports having passed multiple sand-like fragments or particles and now, his urine is clearing and he has no pain, whatsoever. Feels completely well. ALLERGIES: Recorded as none. MEDICATIONS: In the hospital include ceftriaxone, Lovenox, Glucagon, insulin, magnesium sulfate, potassium chloride, Zofran. PAST MEDICAL HISTORY: Hypertension, hyperlipidemia, and diabetes. PAST SURGICAL HISTORY: Knee surgery, cervical surgery. REVIEW OF SYSTEMS: He has no shortness, no chest pain. His appetite is good. No nausea, vomiting, constipation, or diarrhea. No headaches, no dizziness, no nosebleeds. No joint pain, joint swelling, limitation of movement, night sweats, fevers, chills, or skin rash. PHYSICAL EXAMINATION: GENERAL: On exam, well-nourished, well-developed male, in no distress whatsoever, watching television. VITAL SIGNS: His temperature is 98, blood pressure 120/80 with a pulse of 82. NECK: No adenopathy or supraclavicular masses palpable. LUNGS: Lung escobar are clear to auscultation. CARDIAC: Heart sounds are best heard in the fifth intercostal space. ABDOMEN: Obese, soft, nontender. BACK: No CVA tenderness. EXTERNAL GENITALIA: Phallus free of any lesions. Testicles are descended bilaterally, nontender. No masses. RECTAL: Reveals a patent anus. LABORATORY DATA: Reviewed in detail. His white count on admission did document a cloudy red urine, specific gravity of 1.029, large amount of glucose, too numerous to count red cells, a few white cells and no bacteria, whatsoever. The patient's initial admitting white count was 12. The patient's current white count is 6.9. His hematocrit is 47. The patient's platelet count is 208. Sodium 140, potassium 4.2, and his BUN and creatinine are 13/0.7. IMAGING STUDIES: Included a noncontrast CT scan of the abdomen and pelvis that shows no stones, no hydronephrosis, and no masses. He did have an ultrasound of his kidneys as well that documents no cortical masses in either kidney. There is a small parapelvic cyst on the left hand side. ASSESSMENT: * Gross hematuria, possibly secondary to passage of a small stone or stones. * Intrinsic lesion in the bladder. RECOMMENDATIONS: My recommendations for the patient: * To be started on Flomax 0.4 mg once a day. * From a Urology standpoint, the patient is dischargeable. His urine has cleared up pretty much completely. * He is to follow up with PCP for referral to Urology. * PSA, as well as diagnostic cystoscopy to complete workup of hematuria. * As an outpatient, he will need a 24-hour urine collection for metabolic workup regarding possible stone disease. Finally, the patient's concerns and questions were answered. Thank you for the opportunity for providing consultation on ____ patient. Sincerely, TID: [id number] RECEIPT: [id number]
[2024-09-19 04:00] VITALS: BP 141/80; PULSE 71; RESP 17; TEMP 97.9
[2024-09-19 05:03] LABS: IMMATURE GRANULOCYTE ABSOLUTE 0.05 K/uL (0-1); NUCLEATED RED BLOOD CELLS 0.0 % (0.0-0.19); PLATELET COUNT (AUTO) 200 K/uL (130-400); RED BLOOD CELL COUNT(AUTO) 4.76 MIL/uL (4.50-6.20); RED CELL DISTRIBUTION WIDTH 13.0 % (11.0-15.5); WHITE BLOOD COUNT (AUTO) 5.9 K/uL (4.8-10.8)
[2024-09-19 05:19] LABS: CREATININE 0.9 mg/dL (0.5-1.3); GLOMERULAR FILTR. RATE CALC 92.0 mL/min (>90); GLUCOSE,RANDOM 208.0 mg/dL (70-105); SODIUM SERUM 140.0 mmol/L (136-145); UREA NITROGEN, BLOOD 19.0 mg/dL (7-18)
[2024-09-19 08:00] VITALS: O2SAT 97
[2024-09-19 08:02] VITALS: BP 153/92; PULSE 79; RESP 17; TEMP 98.1
[2024-09-19] MEDS: GABAPENTIN 300 MG CAPSULE PO SCH (08:23)
[2024-09-19 11:20] VITALS: BP 158/79; PULSE 68; RESP 19; TEMP 98.4
--- NOTE | 2024-09-19 13:54 | DS ---
Discharge Summary Hospital Course Summary: Mr. Nina is a 69 year old Beninese speaking gentleman with past medical history of hypertension, diabetes mellitus type 2, hyperlipidemia came to ED with complaints of burning with micturition since 3 days and noticed color change in his urine. He says he had low grade fevers at home, no chills or night sweats but did not take Tylenol. He denies abdominal pain or nausea or vomiting or flank pain. He denies any urinary incontinence. Patient sees Dr. Urena for his lower back pain and b/l lower extremity weakness and gets an injection every 2 months but he doesn't remember the name. His Lumbar MRI is remarkable for moderate to severe multi-level spondylosis and degenerative disc changes, moderate canal narrowing with clumping of the cauda equina, and severe right foraminal narrowing with compression of right L5 nerve root. There was passage of sand-like material with hematuria yesterday but his urine cleared up today. lactic acid improved to 1.9 from 4.1. Patient's hemoglobin A1c at 8.0. His CT abdomen and pelvis showed thickened bladder wall without evidence of calculi or hydronephrosis. His renal US showed left simple parapelvic cyst. Urology was consulted for hematuria, Dr. Haney recommended outpatient diagnostic cystoscopy and PSA levels but patient is dischargeable from urology standpoint. His Urine cultures grew <10,000 CFU. He is hemodynamically stable, denies any dysuria or suprapubic pain or flank pain or nausea / vomiting. We will discharge him today on Flomax and recommend him to f/u with his PCP and urologist in 2 weeks. Financial Dealers(s): Urology - Dr. Haney Procedure(s): PATIENT: AMI NINA MR#: [id number] : 1955 SEX: M AGE: 69 LOCATION: [facility] ORDER 9 STATUS: REG ER REPORT#: [id number] SERVICE 8 REASON: hematuria ORDERING PHYSICIAN: YUDITH CALLEJAS MD PROCEDURE: ABD PEL WO - CT ABDOMEN/PELVIS W/O CONTRAST EXAM: CT abdomen and pelvis without contrast HISTORY: Hematuria TECHNIQUE: Multiple axial CT slices through the abdomen and pelvis without contrast. Coronal and sagittal reconstructions were performed. CT scans are performed using one of these three dose reduction techniques: automated exposure control, adjustment of the mA and/or kV according to patient size, or use of iterative reconstruction techniques. COMPARISON: None FINDINGS: Atelectasis seen in the lung bases. Coronary artery calcifications. No hepatic lesions. Gallbladder is decompressed. Spleen is normal. No pancreatic lesions. Adrenal glands are normal. No renal lesions. No hydronephrosis. Bladder is decompressed with mildly thickened wall. Bladder wall is slightly indistinct. No bowel dilatation. Diverticulosis. Appendix is normal. Vascular calcifications. No abdominal/pelvic lymphadenopathy. Degenerative changes. Air seen along the left retroperitoneum and in the spinal canal. Mild anterolisthesis of L4 and L5 vertebrae. IMPRESSION: Thickened indistinct appearance of the bladder wall may be secondary to infection or under distention. No urinary calculi or hydronephrosis. Air seen in the spinal canal and left retroperitoneum may be iatrogenic. Please clinic correlate with history and neurologic symptoms /[place] DICTATED BY: MELVA ANDERSON MD DATE: 09/16/24 1308 ELECTRONICALLY SIGNED BY: MELVA ANDERSON MD DATE: 09/16/24 1308 PATIENT: AMI NINA MR#: [id number] : 1955 SEX: M AGE: 69 LOCATION: [facility] ORDER 110 STATUS: ADM IN REPORT#: [id number] SERVICE 1105 REASON: hematuria ORDERING PHYSICIAN: JACQUELINE FERNANDEZ MD PROCEDURE: RENAL - US RENAL SONOGRAM EXAMINATION: ULTRASOUND OF THE RETROPERITONEUM. CLINICAL HISTORY: Hematuria. COMPARISON: CT abdomen and pelvis without contrast dated 09/16/2024. TECHNIQUE: Real-time grayscale ultrasound images of the kidneys. FINDINGS: The kidneys are normal in caliber, the right kidney measures 11.5 x 6.2 x 4.3 cm and the left kidney measures 11.2 x 5.9 x 4.3 cm in its craniocaudal, AP, and transverse dimensions respectively. There is normal renal cortical thickness, and cortical echogenicity. There is no renal calculus or hydronephrosis. There is a simple parapelvic cortical cyst that measures 1.6 x 1.6 x 1.7 cm in the left renal upper pole. There is bilateral renal cortical lobulations. IMPRESSION: Left renal simple parapelvic cyst. No urinary calculi. No hydronephrosis. /[place] DICTATED BY: HARISH BRUCE MD DATE: 09/18/24745 ELECTRONICALLY SIGNED BY: HARISH BRUCE MD DATE: 09/18/24745 PATIENT: AMI NINA MR#: [id number] : 1955 SEX: M AGE: 69 LOCATION: [facility] ORDER 47 STATUS: ADM IN REPORT#: [id number] SERVICE 134 REASON: PNEUMORRHACHIS, WEAKNESS IN B/L LE ORDERING PHYSICIAN: GALO MUNSON MD PROCEDURE: L SPN WO - MR SPINAL CANAL, LUMBAR WO CON EXAM: MR Lumbar Spine Without Intravenous Contrast. CLINICAL HISTORY: Pneumorrhachis, weakness in the bilateral lower extremities. TECHNIQUE: Magnetic resonance images of the lumbar spine in multiple planes. CONTRAST: None. COMPARISON: CT abdomen and pelvis dated 09/16/24. FINDINGS: For this examination, spinal levels were labeled assuming five [id number], lumbar-type vertebrae, with the inferior labeled L5. No acute fracture. Moderate dextroscoliosis. Mild degenerative anterolisthesis of L4 over L5. Multilevel spondylosis is evident by marginal osteophytes and facet joint arthropathy. Multilevel disc desiccation and degenerative disc height reduction were noted, more pronounced at the L2-L3 level. Normal vertebral body heights. Modic type I changes in the contiguous endplates at the L3-L4 level. Conus medullaris terminates at the T12-L1 level. No abnormal epidural masses. Mild subcutaneous edema in the lower back. Individual spinal levels are described as follows: T12-L1: No disc bulge or herniation. No neural foraminal, lateral recess, or spinal canal stenosis. L1-L2: 4 mm disc osteophyte complex bulge, ligamentum flavum thickening, and facet joint arthropathy causing mild canal narrowing and mild bilateral foraminal narrowing. No lateral recess stenosis. L2-L3: 6 mm left predominant disc osteophyte complex bulge and facet joint arthropathy causing mild canal narrowing with clumping of the cauda equina and moderate left foraminal narrowing. No lateral recess stenosis. L3-L4: 5 mm disc osteophyte complex bulge and facet joint arthropathy causing mild indentation on the anterior thecal sac and moderate left foraminal narrowing. No lateral recess stenosis. L4-L5: 7 mm anterolisthesis of L4 over L5 with uncovering of the posterior disc, ligamentum flavum thickening, and facet joint arthropathy causing moderate canal narrowing with clumping of the cauda equina, moderate bilateral lateral recess narrowing with compression of the traversing bilateral L5 nerve roots, severe right foraminal narrowing with compression of the exiting right L5 nerve root, and mild left foraminal narrowing. L5-S1: 3 mm right predominant disc osteophyte complex bulge with right paracentral disc extrusion, 7 mm cranial disc migration, and facet joint arthropathy causing mild indentation on the anterior thecal sac and moderate right foraminal narrowing with compression of the exiting right L5 nerve root. No lateral recess stenosis. IMPRESSION: Pneumorrhachis is not well appreciated on the MRI. Moderate dextroscoliosis. Mild degenerative anterolisthesis of L4 over L5. Moderate to severe multilevel spondylosis and degenerative disc changes. Modic type I changes in the contiguous endplates at the L3-L4 level. Mild canal narrowing and mild bilateral foraminal narrowing at the L1-L2 level. Mild canal narrowing with clumping of the cauda equina and moderate left foraminal narrowing at the L2-L3 level. Mild indentation on the anterior thecal sac and moderate left foraminal narrowing at the L3-L4 level. Moderate canal narrowing with clumping of the cauda equina, moderate bilateral lateral recess narrowing with compression of the traversing bilateral L5 nerve roots, severe right foraminal narrowing with compression of the exiting right L5 nerve root, and mild left foraminal narrowing at the L4-L5 level. Mild indentation on the anterior thecal sac and moderate right foraminal narrowing with compression of the exiting right L5 nerve root at the L5-S1 level. No significant interval changes. /[place] DICTATED BY: SATISH FERGUSON Jr., MD DATE: 09/17/242256 ELECTRONICALLY SIGNED BY: SATISH FERGUSON Jr., MD DATE: 09/17/242256 Assessment/Plan: ASSESSMENT: Sepsis secondary to UTI, POA, now resolving UTI with hematuria, POA High hemoglobin levels could be due to polycythemia vera Uncontrolled DM type 2 with Hyperglycemia POA Leukocytosis POA Hyponatremia POA, Pneumorrhachis on CT 09/16/24 POA Dehydration Hypertension Hyperlipidemia Discharge Instructions: ADMISSION DATE : 09/16/24 DISCHARGE DATE: 09/19/24 DISPOSITION : Home CONDITION : Stable [employer] INSTALLER(S) : Urology - Dr. Haney FOLLOW UP APPOINTMENT(S) : f/u with PCP in one 2-3 days, f/u with Dr. Haney in one week for diagnostic cystoscopy PROCEDURES: none IMAGING (S) : report attached to summary MICROBIOLOGY : report attached to summary ACTIVITY : ad mahnaz HOME MEDICATIONS : Continued Home Medications: Active Scripts Tamsulosin HCl (Flomax) 0.4 Mg Cap.er.24h, 0.4 MG PO DAILY, #30 CAPSULE.DR Prov:GALO MUNSON MD 09/19/24 Cyclobenzaprine HCl (Flexeril) 10 Mg Tab, 10 MG PO TID PRN for PAIN LEVEL 6 TO 10 for 3 Days, #9 TAB Prov:ALEX MORALES V HURRICANE TRACKER 03/04/22 Reported Medications Duloxetine HCl (Duloxetine HCl) 30 Mg Capsule.dr, 30 MG PO BID, CAP 09/16/24 Losartan Potassium (Losartan Potassium) 100 Mg Tablet, 1 TAB PO DAILY for 30 Days, #30 TAB 0 Refills 09/16/24 Rosuvastatin Calcium (Rosuvastatin Calcium) 40 Mg Tablet, 1 TAB PO DAILY for high cholesterol for 30 Days, #30 TAB 0 Refills 09/16/24 Pioglitazone HCl (Pioglitazone HCl) 15 Mg Tablet, 1 TAB PO DAILY for 30 Days, #30 TAB 0 Refills 09/16/24 Gabapentin (Gabapentin) 100 Mg Capsule, 300 MG PO TID, CAP 09/16/24 Glimepiride (Glimepiride) 2 Mg Tablet, 1 TAB PO DAILY for 30 Days, #30 TAB 0 Refills 09/16/24 Metformin HCl (Metformin HCl) 1,000 Mg Tablet, 1000 MG PO BID, TAB 09/16/24 New Medications: Tamsulosin HCl (Flomax) 0.4 Mg Cap.er.24h 0.4 MG PO DAILY, #30 CAPSULE.DR Continued Medications: Cyclobenzaprine HCl (Flexeril) 10 Mg Tab 10 MG PO TID PRN for PAIN LEVEL 6 TO 10 for 3 Days, #9 TAB Duloxetine HCl (Duloxetine HCl) 30 Mg Capsule.dr 30 MG PO BID, CAP Gabapentin (Gabapentin) 100 Mg Capsule 300 MG PO TID, CAP Glimepiride (Glimepiride) 2 Mg Tablet 1 TAB PO DAILY for 30 Days, #30 TAB 0 Refills Losartan Potassium (Losartan Potassium) 100 Mg Tablet 1 TAB PO DAILY for 30 Days, #30 TAB 0 Refills Metformin HCl (Metformin HCl) 1,000 Mg Tablet 1000 MG PO BID, TAB Pioglitazone HCl (Pioglitazone HCl) 15 Mg Tablet 1 TAB PO DAILY for 30 Days, #30 TAB 0 Refills Rosuvastatin Calcium (Rosuvastatin Calcium) 40 Mg Tablet 1 TAB PO DAILY for high cholesterol for 30 Days, #30 TAB 0 Refills Time spent arranging discharge: 1-30 minutes ATTESTATION BY PHYSICIAN I have seen and examined the patient. I reviewed the documentation, medical decision making, and treatment plan as noted by the resident provider above. I agree with the findings and plan of care. Bryn Chau MD, NIHITHA MD Sep 19, 2024 13:54
--- NOTE | 2024-09-19 14:25 | NUR ---
PATIENT IS DISCHARGED. IV TAKEN OUT WITH CATHETER INTACT. EDUCATION GIVEN TO PATIENT WELL FOLLOW UP APPOINTMENTS. PATIENT CURRENTLY WAITING FOR A RIDE.
[2024-09-19] MEDS ORDERED: TAMS-55 PO (15:00)
== END 2024-09-19 16:41 | disposition home or self-care (01) | DRG 872 ==
LOC: EDH 09:31 → EDHIP 13:34 → 3BH 16:05
PROVIDERS: ADMIT Internal Medicine; ATTEND Internal Medicine
DX: A41.9 Sepsis, unspecified organism (principal); N39.0 Urinary tract infection, site not specified; E22.2 Syndrome of inappropriate secretion of antidiuretic hormone; E11.65 Type 2 diabetes mellitus with hyperglycemia; E78.5 Hyperlipidemia, unspecified; E86.0 Dehydration; I10 Essential (primary) hypertension; N32.9 Bladder disorder, unspecified; D45 Polycythemia vera; Z79.899 Other long term (current) drug therapy
CPT/HCPCS: 36415; 72148; 74176; 76770; 80048; 80051; 80053; 81001; 82010; 82550; 82570; 82948; 83036; 83540; 83550; 83605; 84145; 84153; 84156; 84443; 85025; 86140; 87040; 87086; 96374; 99285; G0378; J0696; J1650; J1815; J7030

== ENCOUNTER → 2025-01-15 | Outpatient (CLI) | payer OTHER, MEDICARE ==
[~2025-01-15] MED LIST changes: +DULO30CA52 PO; +GABA-529 PO; +GLIM2TAB30 PO; +LOSA100T59 PO; +METF-446 PO; +PIOG15TA66 PO; +ROSU40TA88 PO; +TAMS-55 PO
--- NOTE | 2025-01-16 06:17 | HMCIMG ---
EXAMINATION: ULTRASOUND OF THE SCROTUM. CLINICAL HISTORY: Unspecified testicular pain. COMPARISON: None. TECHNIQUE: Real-time grayscale ultrasound images of the testes. FINDINGS: Both the testicles are smaller in caliber, and shows altered echotexture with reduced vascularity. The right testicle measures 4.1 x 1.8 x 2.4 cm. (PSV is 2 cm/s). The left testicle measures 2.9 x 1.5 x 2.2 cm. (PSV is 2 cm/s). Both the epididymides are normal in appearance. The right epididymis measures 0.6 cm. The left epididymis measures 0.6 cm. There is no varicocele. There are trace bilateral hydroceles. The scrotal wall appears normal. IMPRESSION: Atrophic bilateral testicles with altered echotexture and reduced flow. Recommend MRI. Trace bilateral hydroceles. /[place]
== END | disposition home or self-care (01) ==
LOC: RAH 14:21
PROVIDERS: ATTEND Urology
DX: N50.0 Atrophy of testis (principal); N50.819 Testicular pain, unspecified
CPT/HCPCS: 76870

== ENCOUNTER → 2025-01-31 | Outpatient (CLI) | payer OTHER, MEDICARE ==
[2025-01-31 09:32] LABS: IMMATURE GRANULOCYTE ABSOLUTE 0.10 K/uL (0-1); NUCLEATED RED BLOOD CELLS 2.2 % (0.0-0.19); PLATELET COUNT (AUTO) 235 K/uL (130-400); RED BLOOD CELL COUNT(AUTO) 3.50 MIL/uL (4.50-6.20); RED CELL DISTRIBUTION WIDTH 15.7 % (11.0-15.5); WHITE BLOOD COUNT (AUTO) 6.8 K/uL (4.8-10.8)
[2025-01-31 10:17] LABS: CREATININE 1.0 mg/dL (0.5-1.3); GLOMERULAR FILTR. RATE CALC 81.0 mL/min (>90); GLUCOSE,RANDOM 157.0 mg/dL (70-105); SODIUM SERUM 139.0 mmol/L (136-145); UREA NITROGEN, BLOOD 17.0 mg/dL (7-18)
== END | disposition home or self-care (01) ==
LOC: LAB 08:20
PROVIDERS: ATTEND Urology
DX: N50.819 Testicular pain, unspecified (principal); R97.20 Elevated prostate specific antigen [PSA]; R31.29 Other microscopic hematuria
CPT/HCPCS: 36415; 80048; 85025